=== PATIENT | male | born 1950 | race Caucasian/White ===

== ENCOUNTER 2019-01-01 19:52 | Emergency (ER) | payer OTHER ==
[~2019-01-01] VITALS: Ht 175.3 cm; Wt 86.2 kg
[2019-01-01] MEDS ORDERED: NORCO 7.5-3251 EACH PO (20:27)
[2019-01-01] MEDS ORDERED: PROAIR HFA8.5 GM INH (20:27)
[2019-01-01 20:40] VITALS: BP 142/97
== END 2019-01-01 20:45 | disposition home or self-care (01) ==
LOC: ER 19:52
DX: S20.211A Contusion of right front wall of thorax, initial encounter (principal); W17.89XA Other fall from one level to another, initial encounter; Y93.89 Activity, other specified; Y92.89 Other specified places as the place of occurrence of the external cause; Y99.8 Other external cause status

== ENCOUNTER 2021-01-28 20:05 | Emergency (ER) | payer OTHER ==
[~2021-01-28] VITALS: Ht 175.3 cm; Wt 93.0 kg
[~2021-01-28 20:05] MED LIST: NORCO 7.5-3251 EACH PO; PROAIR HFA8.5 GM INH
[2021-01-28] MEDS ORDERED: L-ARGININE1000 MG PO (21:30)
[2021-01-28] MEDS ORDERED: OMEPRAZOLE 20 M20 M1 PO (21:31)
[2021-01-28] MEDS ORDERED: B-COMPLEX WITH1 EACH PO (21:33)
[2021-01-28] MEDS ORDERED: ASA81BEC PO (21:34)
[2021-01-28 21:41] LABS: ABSOLUTE NEUTROPHILS 4.6 thou/uL (1.4-8.2); BASOPHILS 0.4 % (0.0-2.0); EOSINOPHILS 0.9 % (0.0-3.0); HEMATOCRIT 43.2 % (42.0-52.0); HEMOGLOBIN 14.7 gm/dL (14.0-18.0); LYMPHOCYTES 26.7 % (24.0-44.0); MCH 31.3 pg (26.0-34.0); MCHC 34.1 g/dL (28.0-37.0); MCV 91.7 fL (80.0-100.0); MONOCYTES 8.8 % (1.0-8.0); POLYS 63.2 % (36.0-66.0); RBC 4.71 mil/uL (4.50-6.00); RDW 13.8 % (10.5-14.5); WBC 7.7 thou/uL (4.0-11.0)
[2021-01-28 21:48] LABS: ANION GAP 7 mmol/L (7-16); BUN 14 mg/dL (7-18); CALCIUM 9.5 mg/dL (8.5-10.1); CHLORIDE 108 mmol/L (98-107); CO2 27 mmol/L (21-32); CREATININE 1.1 mg/dL (0.7-1.3); GLUCOSE 117 mg/dL (74-106); POTASSIUM 3.7 mmol/L (3.5-5.1); SODIUM 142 mmol/L (136-145)
[2021-01-28 21:59] LABS: ALBUMIN 3.9 g/dL (3.4-5.0); DIRECT BILIRUBIN 0.1 mg/dL (<0.1-0.2); SGOT 25 U/L (15-37); SGPT 42 U/L (16-63); TOTAL BILIRUBIN 0.4 mg/dL (0.2-1.0); TOTAL PROTEIN 7.6 g/dL (6.4-8.2); TROPONIN-I <0.06 ng/mL (<0.06)
[2021-01-28 22:13] LABS: PLATELET COUNT 206 thou/uL (150-400)
[2021-01-29 00:05] VITALS: BP 139/69
--- NOTE | 2021-01-29 08:13 | EKG ---
[place] [address] [facility] 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: LUKASZ : 1950 Requested By: Marleny Morejon Order Number: [id number] MD: Chris Caldwell Measurements Intervals Tim[place]in Rate: 85 P: 73 DC: 151 QRS: -52 QRSD: 125 T: 28 QT: 361 QTc: 430 Interpretive Statements Sinus rhythm Left atrial enlargement RBBB and LAFB Compared to ECG 09/23/1999 15:24:25 Atrial abnormality now present Left anterior fascicular block now present Right bundle-branch block now present Sinus arrhythmia no longer present Electronically Signed On 01-29-2021 8:13:32 CDT by Chris Caldwell [email or web address] <ELECTRONICALLY SIGNED> By: Chris Caldwell MD, [facility] 01/29/2113 10 10 Chris Caldwell MD, [facility] /EPI
== END 2021-01-29 01:05 | disposition home or self-care (01) ==
LOC: ER 20:05
PROVIDERS: Emergency Medicine
DX: R10.32 Left lower quadrant pain (principal); R07.89 Other chest pain; Z79.82 Long term (current) use of aspirin; Z79.51 Long term (current) use of inhaled steroids; Z72.89 Other problems related to lifestyle